=== PATIENT | male | born 1945 | race Caucasian/White ===

== ENCOUNTER → 2022-07-03 | Outpatient (REF) | payer MEDICARE ==
[2022-07-03 13:03] LABS: BASO # 0.1 10^3/uL (0.0-0.2); BASO % 0.6 % (0.0-1.0); EOS # 0.5 10^3/uL (0.0-0.5); EOS % 4.5 % (0.0-3.0); HEMATOCRIT 38.6 % (42.0-52.0); HEMOGLOBIN 11.8 g/dl (13.5-17.5); LYMPH # 1.2 10^3/uL (1.5-5.0); LYMPH % 10.9 % (24.0-44.0); MEAN CORPUSCULAR HEMOGLOBIN 29.2 pg (27.0-33.0); MEAN CORPUSCULAR HGB CONC 30.6 g/dl (32.0-36.5); MEAN CORPUSCULAR VOLUME 95.5 fl (80.0-96.0); MONO # 1.2 10^3/uL (0.0-0.8); MONO % 11.6 % (2.0-8.0); NEUTROPHILS # 7.6 10^3/uL (1.5-8.5); NEUTROPHILS % 71.9 % (36.0-66.0); PLATELET COUNT, AUTOMATED 341 10^3/uL (150-450); RED BLOOD COUNT 4.04 10^6/uL (4.30-6.10); WHITE BLOOD COUNT 10.6 10^3/uL (4.0-10.0)
[2022-07-03 13:26] LABS: IMMUNOGLOBULIN A 213.4 MG/DL (40-350); IMMUNOGLOBULIN G 1659 MG/DL (650-1600)
[2022-07-03 13:27] LABS: LDH LACTATE DEHYDROGENASE 182 U/L (120-246)
[2022-07-03 13:28] LABS: CPK CREATINE PHOSPHOKINASE 51 U/L (46-171); IMMUNOGLOBULIN M 82.1 MG/DL (50-300)
[2022-07-03 13:30] LABS: ALBUMIN 3.6 G/DL (3.2-5.2); ALKALINE PHOSPHATASE 76 U/L (46-116); ALT/SGPT 16 U/L (7.0-40); AST/SGOT 16 U/L (<34); BILIRUBIN,TOTAL 0.6 MG/DL (0.3-1.2); BLOOD UREA NITROGEN 20 MG/DL (9-23); CALCIUM LEVEL 9.3 MG/DL (8.3-10.6); CARBON DIOXIDE LEVEL 27 MMOL/L (20-31); CHLORIDE LEVEL 103 MMOL/L (98-107); CREATININE FOR GFR 0.88 MG/DL (0.70-1.30); GLOMERULAR FILTRATION RATE > 60.0 (>42); GLUCOSE, FASTING 100 MG/DL (74-106); POTASSIUM SERUM 4.3 MMOL/L (3.5-5.1); SODIUM LEVEL 139 MMOL/L (136-145); TOTAL PROTEIN 7.5 G/DL (5.7-8.2)
[2022-07-03 13:38] LABS: ERYTHROCYTE SEDIMENTATION RATE 79 mm/hr (0-20)
[2022-07-09 19:09] LABS: ALDOLASE 4.8 U/L (3.3-10.3); HLA-B27 Negative (.)
== END ==
LOC: M SFHCRHEU 09:21
PROVIDERS: ATTEND Internal Medicine Rheumatology
DX: M35.3 Polymyalgia rheumatica (principal); R60.9 Edema, unspecified; R53.1 Weakness

== ENCOUNTER → 2022-09-30 | Outpatient (REF) | payer MEDICARE | LOC: M SFHCRHEU 11:25 | PROVIDERS: ATTEND Internal Medicine Rheumatology | DX: M35.3 Polymyalgia rheumatica (principal); R60.9 Edema, unspecified; R53.1 Weakness; R70.0 Elevated erythrocyte sedimentation rate; D89.2 Hypergammaglobulinemia, unspecified ==

== ENCOUNTER → 2022-10-31 | Outpatient (REF) | payer MEDICARE | LOC: M SFHCRHEU 16:59 | PROVIDERS: ATTEND Internal Medicine Rheumatology | DX: M35.3 Polymyalgia rheumatica (principal); R60.9 Edema, unspecified; R53.1 Weakness; R70.0 Elevated erythrocyte sedimentation rate; D89.2 Hypergammaglobulinemia, unspecified ==

== ENCOUNTER → 2023-05-06 | Outpatient (REF) | payer MEDICARE | LOC: M SFHCRHEU 09:57 | PROVIDERS: ATTEND Internal Medicine Rheumatology | DX: M35.3 Polymyalgia rheumatica (principal); R60.9 Edema, unspecified; R53.1 Weakness; R70.0 Elevated erythrocyte sedimentation rate; D89.2 Hypergammaglobulinemia, unspecified ==

== ENCOUNTER → 2023-07-08 | Outpatient (REF) | payer MEDICARE | LOC: M SFHCRHEU 11:48 | PROVIDERS: ATTEND Internal Medicine Rheumatology | DX: M35.3 Polymyalgia rheumatica (principal); R60.9 Edema, unspecified; R53.1 Weakness; R70.0 Elevated erythrocyte sedimentation rate; D89.2 Hypergammaglobulinemia, unspecified ==

== ENCOUNTER → 2023-10-31 | Outpatient (REF) | payer MEDICARE | LOC: M SFHCRHEU 11:35 | PROVIDERS: ATTEND Internal Medicine Rheumatology | DX: M35.3 Polymyalgia rheumatica (principal) ==